=== PATIENT | male | born 1950 | race Caucasian/White ===

== ENCOUNTER → 2022-11-06 | Outpatient (CLI) | payer MEDICARE ==
[~2022-11-06] MED LIST: FENO67 PO; LOSARTAN POTAS100 MG PO; Magnesium250 MG PO; PANT40 PO; Synthroid25 MCG PO
[2022-11-06 10:33] LABS: Source, Urine Clean Catch
[2022-11-06 12:40] LABS: Appearance, Urine Clear (Clear); Bilirubin, Urine Neg (Neg); Blood, Urine Neg (Neg); Color, Urine Yellow (P-Yellow); Glucose Qualitative, Urine Neg (Neg); Ketones, Urine Neg (Neg); Leukocyte Esterase, Urine Neg (Neg); Nitrite, Urine Neg (Neg); Protein, Urine Neg (Neg); Urobilinogen, Urine NORM (Normal)
== END | disposition home or self-care (01) ==
LOC: LAB 10:32 → LAB SHORT 10:32
PROVIDERS: Internal Medicine
DX: R35.1 Nocturia (principal)
CPT/HCPCS: 81003

== ENCOUNTER 2023-11-04 21:51 | Emergency (ER) | payer MEDICARE ==
[~2023-11-04] VITALS: Ht 172.7 cm; Wt 118.8 kg
[~2023-11-04 21:51] MED LIST changes: +ALBU90OI INH; +ATORVASTATIN CA20 MG PO; +HYDCHL25 PO; +PRED20 PO; +SYNTHROID50 MC1 PO; +TAMSULOSIN HCL0.4 M1 PO
[2023-11-04 22:28] VITALS: BP 156/80
[2023-11-04] MEDS ORDERED: Ketorolac Tromethamine 30mg Vial IM ONE (22:40)
== END 2023-11-04 23:27 | disposition home or self-care (01) ==
LOC: ER 21:51
DX: M54.50 Low back pain, unspecified (principal); E11.9 Type 2 diabetes mellitus without complications; Z79.890 Hormone replacement therapy; Z79.52 Long term (current) use of systemic steroids; Z79.899 Other long term (current) drug therapy
CPT/HCPCS: J1885

== ENCOUNTER → 2024-06-09 | Outpatient (CLI) | payer MEDICARE | LOC: LAB 12:00 → LAB SHORT 12:00 | DX: L02.212 Cutaneous abscess of back [any part, except buttock and flank] (principal) | CPT/HCPCS: 87070; 87205 ==

== ENCOUNTER → 2024-11-04 | Outpatient (CLI) | payer MEDICARE | LOC: LAB SHORT 13:00 → LAB 13:00 | DX: L08.9 Local infection of the skin and subcutaneous tissue, unspecified (principal) | CPT/HCPCS: 87070; 87205 ==